=== PATIENT | female | born 1995 | race Native Hawaiian/Other Pacific Islander ===

== ENCOUNTER → 2019-08-29 04:45 | Observation (INO) ==
[2019-08-29 02:47] VITALS: BP 135/84
[2019-08-29 03:18] LABS: Basophils % 0.1 %; Eosinophils % 0.1 %; Hemoglobin 13.1 g/dL (11.5-15.4); Immature Granulocytes % 0.4 % (0-4); Lymphocytes # 1.8 K/mcL (0.6-4.6); Lymphocytes % 13.5 %; Mean Corpuscular HGB Conc 34.5 g/dL (31.6-35.5); Mean Corpuscular Hemoglobin 30.8 pg (28.0-33.3); Mean Corpuscular Volume 89.4 fL (83.0-100.0); Mean Platelet Volume 10.9 fL (9.4-12.4); Monocytes # 0.9 K/mcL (0.0-1.3); Monocytes % 6.5 %; Neutrophils # 10.6 K/mcL (1.6-8.9); Platelet Count 192 K/mcL (140-400); Red Blood Count 4.25 M/mcL (3.82-4.97); Red Cell Distribution Width 12.9 % (11.5-14.5); Segmented Neutrophils % 79.4 %; White Blood Count 13.4 K/mcL (4.3-11.1)
[2019-08-29 03:36] LABS: Bilirubin,Urine Negative (Negative); Blood,Urine Large (Negative); Clarity,Urine Cloudy (Clear); Color,Urine Yellow (Yellow); Glucose,Urine (UA) Normal (Normal); Ketones,Urine Negative (Negative); Leukocyte Esterase,Urine Small (Negative); Nitrite,Urine Negative (Negative); Protein,Urine 30 mg/dL (Neg-Trace); Specific Gravity,Urine 1.016 (1.010-1.025); Urobilinogen,Urine Normal (Normal)
[2019-08-29 03:39] LABS: Bacteria,Urine None Seen per hpf (None-Few); Hyaline Casts,Urine None Seen per lpf (None-Few); RBC,Urine 30-50 per hpf (0-3); Squamous Epithelial Cell,Urine Many per lpf (None-Few)
[2019-08-29 03:40] LABS: Alanine Aminotransferase 10 Units/L (7-52); Albumin 3.7 g/dL (3.5-5.7); Albumin/Globulin Ratio 1.1 (1.1-2.2); Alkaline Phosphatase 95 Units/L (34-104); Aspartate Amino Transferase 12 Units/L (13-39); BUN/Creatinine Ratio 15 (6-26); Bilirubin,Total 0.3 mg/dL (0.3-1.0); Blood Urea Nitrogen 10 mg/dL (6-20); Calcium 9.4 mg/dL (8.6-10.3); Carbon Dioxide 25 mEq/L (23-29); Chloride 103 mEq/L (98-107); Globulin 3.5 g/dL (2.4-3.5); Glucose 101 mg/dL (70-105); Osmolality,Calculated 279 (280-300); Potassium 3.8 mEq/L (3.5-5.1); Sodium 135 mEq/L (136-145); Total Protein 7.2 g/dL (6.4-8.9); eGFR For African Americans > 60 (> 60); eGFR For Non-African Americans > 60 (> 60)
[~2019-08-29 04:45] MED LIST: Ondansetron 4 MG/2 ML VIAL IVP PRN; Ringers Solution, Lactated 1,000 ML IVC ONE; Ringers Solution, Lactated 1,000 ML ONE; cefTRIAXone 1,000 MG in 0.9 % Sodium Chloride Mini Bag 100 ML IVPB ONE
== END | disposition home or self-care (01) ==
LOC: 1NENULAB
PROVIDERS: ADMIT Registered Nurse; ATTEND Registered Nurse

== ENCOUNTER 2019-10-22 08:00 | Inpatient (IN) ==
[2019-10-22] MEDS ORDERED: Metoclopramide 10 MG/2 ML VIAL IVP PRN (09:18)
[2019-10-22] MEDS ORDERED: Naloxone 0.4 MG/ML INJ IVP PRN (09:18)
[2019-10-22] MEDS ORDERED: Ondansetron 4 MG/2 ML VIAL IVP PRN (09:18)
[2019-10-22] MEDS ORDERED: Azithromycin 500 MG in 0.9 % Sodium Chloride 250 ML IVPB PRN (09:18)
[2019-10-22] MEDS ORDERED: Famotidine 20 MG/2 ML VIAL IVP PRN (09:18)
[2019-10-22] MEDS ORDERED: miSOPROStoL 25 MCG TABLET VG PRN (09:18)
[2019-10-22] MEDS ORDERED: Lidocaine 1% 20 ML MDV INFILT PRN (09:18)
[2019-10-22] MEDS ORDERED: Penicillin G Potassium 5,000,000 UNIT in 0.9 % Sodium Chloride Mini Bag 100 ML IVPB ONE (09:41)
[2019-10-22 09:46] LABS: Basophils % 0.2 %; Eosinophils % 0.1 %; Hematocrit 38.3 % (35.3-44.9); Hemoglobin 13.6 g/dL (11.5-15.4); Immature Granulocytes % 0.6 % (0-4); Lymphocytes # 1.6 K/mcL (0.6-4.6); Lymphocytes % 15.2 %; Mean Corpuscular HGB Conc 35.5 g/dL (31.6-35.5); Mean Corpuscular Hemoglobin 31.6 pg (28.0-33.3); Mean Corpuscular Volume 88.9 fL (83.0-100.0); Mean Platelet Volume 11.8 fL (9.4-12.4); Monocytes # 0.7 K/mcL (0.0-1.3); Monocytes % 6.8 %; Platelet Count 180 K/mcL (140-400); Red Blood Count 4.31 M/mcL (3.82-4.97); Red Cell Distribution Width 12.7 % (11.5-14.5); Segmented Neutrophils % 77.1 %; White Blood Count 10.4 K/mcL (4.3-11.1)
[2019-10-22 09:53] LABS: Amphetamine Screen,Urine Negative ng/mL (Cutoff=1000); Barbiturate Screen,Urine Negative ng/mL (Cutoff=200); Benzodiazepines Screen,Urine Negative ng/mL (Cutoff=200); Cannabinoid Screen,Urine Negative ng/mL (Cutoff = 50); Cocaine Screen,Urine Negative ng/mL (Cutoff= 300); Opiate Screen,Urine Negative ng/mL (Cutoff=300); Phencyclidine Screen,Urine Negative ng/mL (Cutoff=25)
[2019-10-22] MEDS: Ringers Solution, Lactated 1,000 ML IVC SCH ×3 (09:57→21:11)
[2019-10-22] MEDS ORDERED: Methylergonovine 0.2 MG/ML AMPUL IM ONE (10:30)
[2019-10-22] MEDS ORDERED: EPHEDrine 50 MG/ML VIAL IVP PRN ×2 (12:32→18:36)
[2019-10-22] MEDS: *HR* FentaNYL (PF) 100 MCG/2 ML VIAL IVP PRN ×2 (13:04→17:18)
[2019-10-22] MEDS: Penicillin G Potassium 2,500,000 UNIT in 0.9 % Sodium Chloride 100 ML IVPB SCH ×3 (14:10→21:42)
[2019-10-22] MEDS ORDERED: Oxytocin 20 units/ LR 1000 mL 20 UNIT/1,000 ML BAG IVC SCH (17:00)
[2019-10-22] MEDS ORDERED: Ropivacaine/PF 0.2% 20 ML VIAL EP ONE (18:36)
[2019-10-22] MEDS ORDERED: Ropivacaine/PF 0.2% 20 ML VIAL ONE (18:38)
[2019-10-22] MEDS: Epidural Premix (fent/bupiv) 110 ML EP SCH (18:51)
[2019-10-22] MEDS ORDERED: Famotidine 20 MG/2 ML VIAL IVP ONE (21:31)
[2019-10-22] MEDS ORDERED: D5% in Lactated Ringers 1,000 ML IVC SCH (22:45)
[2019-10-23] MEDS: Epidural Premix (fent/bupiv) 110 ML EP SCH (01:45)
[2019-10-23] MEDS: Penicillin G Potassium 2,500,000 UNIT in 0.9 % Sodium Chloride 100 ML IVPB SCH (01:48)
[2019-10-23] MEDS ORDERED: Oxytocin 20 units/ LR 1000 mL 20 UNIT/1,000 ML BAG IVC SCH (07:18)
[2019-10-23] MEDS ORDERED: Benzocaine/Menthol 56 GM AEROSOL SPRAY TP PRN (07:18)
[2019-10-23] MEDS ORDERED: Lanolin 7 G OINT...G. TP PRN (07:18)
[2019-10-23] MEDS: Ibuprofen 600 MG TABLET PO PRN ×2 (07:43→17:20)
[2019-10-23] MEDS: Prenatal Vit/FA 1 EACH TABLET PO SCH (11:42)
[2019-10-23] MEDS: Acetaminophen 325 MG TABLET PO PRN (21:44)
[2019-10-24] MEDS: Ibuprofen 600 MG TABLET PO PRN (05:27)
[2019-10-24] MEDS: Acetaminophen 325 MG TABLET PO PRN (09:44)
[2019-10-24] MEDS: Prenatal Vit/FA 1 EACH TABLET PO SCH (09:45)
[2019-10-24 10:16] VITALS: BP 135/75
[2019-10-24] MEDS ORDERED: Measles/Mumps/Rubella Vacc 0.5 ML VIAL SQ ONE (12:04)
== END 2019-10-24 18:40 | disposition home or self-care (01) | DRG 807 ==
LOC: 1NENULAB 08:05 → 1NENUOBS 10-23 09:00
PROVIDERS: ADMIT Registered Nurse; ATTEND Registered Nurse